=== PATIENT | male | born 1965 | race Caucasian/White ===

== ENCOUNTER 2017-05-16 07:57 | Day surgery (SDC) | payer BC ==
[~2017-05-16] VITALS: Ht 185.4 cm; Wt 81.6 kg
[~2017-05-16 07:57] MED LIST: CHANTIX STARTIN0.5 & PO
[2017-05-16 11:38] VITALS: BP 119/82
== END 2017-05-16 11:55 | disposition home or self-care (01) | DRG 951 ==
LOC: ENDO 07:57
PROVIDERS: ATTEND Surgery
PROC: 0DJD8ZZ Inspection of Lower Intestinal Tract, Via Natural or Artificial Opening Endoscopic (ICD-10-PCS; principal; 2017-05-16)
DX: Z12.11 Encounter for screening for malignant neoplasm of colon (principal)